=== PATIENT | female | born 1950 | race Two or more races ===

== ENCOUNTER 2017-03-31 12:28 | Inpatient (IN) | payer MEDICARE, OTHER ==
[~2017-03-31] VITALS: Ht 165.1 cm; Wt 52.6 kg
--- NOTE | 2017-03-31 12:28 | NUR ---
ANASTASIYA FROM SNF FOR R FEMORAL NECK FRACTURE S/P GLF WHILE TAKING . AWATING MD ORDER Addendum: 03/31/17 at 1425 by DA LEFT HIP
--- NOTE | 2017-03-31 12:56 | NUR ---
RAC #20 IV ACCESS. BLOOD SAMPLE COLLECTED SENT TO LAB
--- NOTE | 2017-03-31 12:58 | NUR ---
EKG IN PROGRESS
[2017-03-31 13:00] LABS: BASOPHILS # (AUTO) 0.2 /CMM (0.0-0.2); EOSINOPHILS # (AUTO) 0.1 /CMM (0.0-0.7); EOSINOPHILS % (AUTO) 0.7 % (0.0-6.0); HEMATOCRIT 41 % (33-45); HEMOGLOBIN 13.9 g/dL (11.5-14.8); LYMPHOCYTES % (AUTO) 9.9 % (20.0-44.0); MEAN CORPUSCULAR HEMOGLOBIN 30 PG (26.0-33.0); MEAN CORPUSCULAR HGB CONC 34 g/dl (31.0-36.0); MEAN CORPUSCULAR VOLUME 89 fL (82-100); MONOCYTES # (AUTO) 0.8 /CMM (0.1-1.30); MONOCYTES % (AUTO) 7.4 % (2.0-12.0); PLATELET COUNT (AUTO) 182 /CMM (150-450); RDW COEFFICIENT OF VARIATION 12.9 (11.5-15.0); RED BLOOD CELL COUNT(AUTO) 4.67 MIL/uL (4.0-5.2); WHITE BLOOD COUNT (AUTO) 10.1 K/uL (4.3-11.0)
--- NOTE | 2017-03-31 13:05 | NUR ---
COOK [place]AMP AT BEDSIDE
[2017-03-31 13:12] LABS: CALCIUM, SERUM 8.8 mg/dL (8.5-10.1); CARBON DIOXIDE 25 mmol/L (21-32); CHLORIDE 104 mmol/L (98-107); CREATININE 0.8 mg/dL (0.6-1.3); GLUCOSE 106 mg/dL (74-106); POTASSIUM 3.9 mmol/L (3.5-5.1); SODIUM SERUM 138 mmol/L (136-145); UREA NITROGEN, BLOOD 12 mg/dL (7-18)
[2017-03-31 13:14] LABS: INR 1.09 (0.87-1.13); PROTHROMBIN TIME 11.4 SECS (9.5-12.7)
[2017-03-31 13:20] LABS: TROPONIN I < 0.017 ng/mL (0.00-0.056)
--- NOTE | 2017-03-31 13:23 | NUR ---
ORTHO ON-CALL PAGED
--- NOTE | 2017-03-31 13:27 | NUR ---
DR SOLORIO ON THE PHONE WITH FRANCESCO MERRILL TESTER ELECTRONIC SCALE
--- NOTE | 2017-03-31 13:28 | NUR ---
PAGED LEGAL FINANCIAL SPECIALIST PANEL
[2017-03-31] MEDS ORDERED: IV NS 0.9% 1,000 ML BAG IV ONE (13:30)
[2017-03-31] MEDS ORDERED: MORPHINE SULFATE INJ 2 MG/ML DISP.SYRIN IV ONE (13:30)
[2017-03-31] MEDS ORDERED: MORPHINE SULFATE INJ 2 MG/ML DISP.SYRIN ONE (13:33)
--- NOTE | 2017-03-31 13:40 | NUR ---
DR SOLORIO ON THE PHONE WITH DR DALTON REGARDING PATIENT'S ADMISSION.
[2017-03-31] MEDS ORDERED: ASPI81TA2 PO (14:00)
[2017-03-31] MEDS ORDERED: QUET300T2 PO (14:00)
[2017-03-31] MEDS ORDERED: AMLO5TAB2 PO (14:00)
[2017-03-31] MEDS ORDERED: ACET-868 PO (14:00)
[2017-03-31] MEDS ORDERED: MAGN400O6 PO (14:00)
[2017-03-31] MEDS ORDERED: LEVO50TA8 PO (14:00)
[2017-03-31] MEDS ORDERED: QUET50TA PO (14:00)
[2017-03-31] MEDS ORDERED: ATOR80TA PO (14:00)
[2017-03-31] MEDS ORDERED: FAMO20TA8 PO (14:00)
--- NOTE | 2017-03-31 14:19 | NUR ---
GAVE REPORT TO [facility] ROOM 205-[address] DALTON
[2017-03-31 14:40] VITALS: BP 120/72
--- NOTE | 2017-03-31 14:40 | NUR ---
MS RN NOTES ADMITTED FROM ER, [facility]IA [place], DX: L HIP FRACTURE BY DR. DALTON, AAO X 3, ON RA, NOT IN ANY DISTRESS, PAIN TOLERABLE TO LEFT HIP. RT AC G20 V ACCESS, FLUSHES WELL, SITE CLEAR. NO SKIN ISSUES. WAS PLACED ON NPO FROM ER. UNABLE TO AMBULATE. UNIT ORIENTATION DONE AND USE OF CALL LIGHT, BED LOW LOCKED, SR UP X 2, WILL CONTINUE TO MONITOR.
--- NOTE | 2017-03-31 14:51 | NUR ---
MS RN NOTE PLACED A CALL TO DR. DALTON VIA EXCHANGE FOR ADMIT ORDERS.
[2017-03-31] MEDS ORDERED: Z GUARD REMEDY 2 OZ OINT TP PRN (15:00)
[2017-03-31] MEDS ORDERED: HYDROCODONE/APAP 5/325MG 1 EACH TABLET PO PRN (15:00)
[2017-03-31] MEDS ORDERED: ONDANSETRON HCL/PF 4 MG/2 ML VIAL IVP PRN (15:00)
[2017-03-31] MEDS ORDERED: MAGNESIUM HYDROXIDE 30 ML UDC PO PRN (15:00)
[2017-03-31] MEDS ORDERED: ZOLPIDEM TARTRATE 5 MG TABLET PO PRN (15:00)
[2017-03-31] MEDS ORDERED: ACETAMINOPHEN 325 MG TABLET PO PRN (15:00)
--- NOTE | 2017-03-31 15:23 | NUR ---
MS RN NOTES DR. DALTON AT BEDSIDE EARLIER, PLACED ALL ADMIT ORDERS. CARRIED OUT. NAVA DESHPANDE NOTIFIED OF ORTHO CONSULT.
[2017-03-31] MEDS: IV NS 0.9% 1,000 ML IV PRN (15:49)
[2017-03-31 16:00] VITALS: BP 120/72
[2017-03-31] MEDS: ASPIRIN 81 MG TAB.CHEW PO SCH (16:01)
[2017-03-31] MEDS: LEVOTHYROXINE SODIUM 50 MCG TABLET PO SCH (16:01)
[2017-03-31] MEDS: FAMOTIDINE (20 MG) 20 MG TABLET PO SCH (16:01)
[2017-03-31] MEDS: QUETIAPINE FUMARATE 25 MG TABLET PO SCH (16:01)
[2017-03-31] MEDS: AMLODIPINE BESYLATE 5 MG TABLET PO SCH (16:01)
--- NOTE | 2017-03-31 19:40 | NUR ---
MS RN NOTED: PATIENT RESTING IN BED, NO ACUTE DISTRESS NOTED. BREATHING EVEN AND UNLABORED, NO SOB NOTED. IV TO RIGHT HAND IN PLACE, INFUSING NS AT 75ML/HR. MAZARIEGOS CATHETER IN PLACE, DRAINING CLEAR YELLOW URINE. BED LOCKED AND IN LOWEST POSITION, CALL LIGHT IN REACH, WILL CONTINUE TO MONITOR.
[2017-03-31 20:00] VITALS: BP 116/73
[2017-03-31] MEDS: ATORVASTATIN 40 MG TABLET PO SCH (22:05)
[2017-03-31] MEDS: QUETIAPINE FUMARATE 100 MG TABLET PO SCH (22:05)
--- NOTE | 2017-03-31 22:15 | NUR ---
MS RN NOTE: PATIENT COMPLAINS OF PAIN TO LEFT HIP 01/12, NORCO 5/325MG 1 TAB ORAL GIVEN PER MD ORDER. WILL CONTINUE TO MONITOR.
[2017-04-01] MEDS: IV NS 0.9% 1,000 ML IV PRN (05:42)
--- NOTE | 2017-04-01 06:15 | NUR ---
MS RN NOTED: PATIENT RESTING IN BED, NO ACUTE DISTRESS NOTED. BREATHING EVEN AND UNLABORED, NO SOB NOTED. IV TO RIGHT HAND IN PLACE, INFUSING NS AT 75ML/HR. MAZARIEGOS CATHETER IN PLACE. BED LOCKED AND IN LOWEST POSITION, CALL LIGHT IN REACH, WILL ENDORSE TO DAY NURSE TO CONTINUE WITH PLAN OF CARE.
[2017-04-01 06:47] LABS: ALBUMIN 2.6 g/dL (3.4-5.0); BASOPHILS # (AUTO) 0.1 /CMM (0.0-0.2); BASOPHILS % (AUTO) 0.8 % (0.0-2.0); BILIRUBIN,TOTAL 0.5 mg/dL (0.2-1.0); CALCIUM, SERUM 8.1 mg/dL (8.5-10.1); CREATININE 0.8 mg/dL (0.6-1.3); EOSINOPHILS # (AUTO) 0.4 /CMM (0.0-0.7); EOSINOPHILS % (AUTO) 5.2 % (0.0-6.0); HEMATOCRIT 37 % (33-45); HEMOGLOBIN 12.4 g/dL (11.5-14.8); LYMPHOCYTES # (AUTO) 1.4 /CMM (0.8-4.8); LYMPHOCYTES % (AUTO) 19.5 % (20.0-44.0); MAGNESIUM 1.7 mg/dL (1.8-2.4); MEAN CORPUSCULAR HEMOGLOBIN 30 PG (26.0-33.0); MEAN CORPUSCULAR HGB CONC 33 g/dl (31.0-36.0); MEAN CORPUSCULAR VOLUME 89 fL (82-100); MONOCYTES # (AUTO) 0.8 /CMM (0.1-1.30); MONOCYTES % (AUTO) 10.6 % (2.0-12.0); NEUTROPHILS # (AUTO) 4.6 /CMM (1.8-8.9); NEUTROPHILS % (AUTO) 63.9 % (43.0-81.0); PHOSPHORUS 4.3 mg/dL (2.5-4.9); PLATELET COUNT (AUTO) 148 /CMM (150-450); POTASSIUM 4.1 mmol/L (3.5-5.1); RDW COEFFICIENT OF VARIATION 14.2 (11.5-15.0); RED BLOOD CELL COUNT(AUTO) 4.17 MIL/uL (4.0-5.2); TOTAL PROTEIN, SERUM 5.9 g/dL (6.4-8.2); WHITE BLOOD COUNT (AUTO) 7.1 K/uL (4.3-11.0)
--- NOTE | 2017-04-01 07:20 | NUR ---
MS RN OPENING RECEIVED REPORT ON PATIENT. A/OX4 DENIES SOB DIFFICULTY BREATHING AND STATES PAIN IN LEFT LEG BUT IS STATING SHE DOES NOT WANT ANY PAIN MEDICATIONS AT THIS TIME. ALL NEEDS IN REACH, MAZARIEGOS CATH CLEAN AND INTACT PATENT DRAINING. PATIENT UPDATED ON CARE PLAN AND NPO STATUS/LABS ALL QUESTIONS ANSWERED. CALL LIGHT IN REACH, BED LOWERED AND LOCKED, RAILS UPX3 FOR SAFETY WITH BED ALARM ON. PATIENT ASSISTED TO REPOSIT FOR INCREASED COMFORT. WILL ROUND Q2H OR LESS PER NEEDS
[2017-04-01] MEDS: LEVOTHYROXINE SODIUM 50 MCG TABLET PO SCH (07:30)
[2017-04-01] MEDS: FAMOTIDINE (20 MG) 20 MG TABLET PO SCH ×2 (07:30→17:11)
[2017-04-01 08:00] VITALS: BP 119/70
--- NOTE | 2017-04-01 08:29 | NUR ---
ms rn notes patient is forgetful continuing to repeat self. updating patient on care plan
[2017-04-01] MEDS: ASPIRIN 81 MG TAB.CHEW PO SCH (09:00)
[2017-04-01] MEDS: AMLODIPINE BESYLATE 5 MG TABLET PO SCH (10:13)
[2017-04-01] MEDS: QUETIAPINE FUMARATE 25 MG TABLET PO SCH (10:14)
--- NOTE | 2017-04-01 10:15 | NUR ---
MS RN NOTES NAVA DESHPANDE AT BEDSIDE
[2017-04-01] MEDS: Magnesium 1GM/D5W 100ML PREMIX 100 ML IV SCH ×2 (10:21→14:12)
--- NOTE | 2017-04-01 10:52 | NUR ---
MS RN NOTES PATIENT STATING PAIN 10/13 BUT CONTINUES TO REFUSE PAIN MEDICATIONS; PATIENT STATES AT THIS TIME PAIN IS MANAGEABLE
--- NOTE | 2017-04-01 11:15 | NUR ---
MS RN NOTES PATIENT TAKEN TO SURGICAL UNIT IN STABLE CONDITION
[2017-04-01] MEDS ORDERED: LIDOCAINE 1% INJ 50 ML MDV IJ ONE (11:46)
[2017-04-01] MEDS ORDERED: BACITRACIN 50000 UNITS/VIAL ONE (11:46)
[2017-04-01] MEDS ORDERED: BUPIVACAINE MPF W/EPI 0.25% 30 ML VIAL ONE (11:48)
[2017-04-01] MEDS ORDERED: ROCURONIUM BROMIDE 50 MG/5 ML ONE (11:52)
[2017-04-01] MEDS ORDERED: FENTANYL PF 100MCG/2ML AMPUL ONE ×2 (11:52→12:52)
[2017-04-01] MEDS ORDERED: MIDAZOLAM HCL 2 MG/2ML VIAL ONE (11:52)
--- NOTE | 2017-04-01 12:05 | NUR ---
MS CARTER NOTES PATIENT GONE AT SURGERY Addendum: 04/01/17 at 1207 by WILDER MALDONADO RN Amended: Links added.
[2017-04-01] MEDS ORDERED: TRANEXAMIC ACID 3,000 MG in SODIUM CHLORIDE IRRIG SOLUTION 70 ML IR ONE (13:00)
[2017-04-01 14:00] VITALS: BP 137/65
[2017-04-01] MEDS ORDERED: SENOKOT 8.6 MG TABLET PO PRN (14:00)
[2017-04-01] MEDS ORDERED: HYDROCODONE/APAP 5/325MG 1 EACH TABLET PO PRN (14:00)
[2017-04-01] MEDS ORDERED: ZOFRAN 4mg/2ML IV PRN (14:00)
[2017-04-01] MEDS ORDERED: AMBIEN 5 MG TABLET PO PRN (14:00)
[2017-04-01] MEDS ORDERED: HYDROMORPHONE 1 MG/1 ML DISP.SYRIN IV PRN (14:00)
[2017-04-01] MEDS ORDERED: DULCOLAX 10 MG/SUPP.RECT RC PRN (14:00)
--- NOTE | 2017-04-01 14:01 | NUR ---
MS RN NOTES PATIENT RETURNED FROM SURGERY STABLE DENIES PAIN, SOB DIFFICULTY BREATHING AT THIS TIME. IN POSITION OF COMFORT. DRESSING TO LEFT HIP INTACT. BED LOWERED AND LOCKED, RAILS UPX3 FOR SAFETY AND WILL ROUND NEEDED
[2017-04-01 14:20] VITALS: BP 128/62
[2017-04-01] MEDS: IV LR 1000 ML 1,000 ML IV PRN (14:32)
[2017-04-01] MEDS ORDERED: ANESTHESIA TRAY IN PYXIS 1 EA TRAY MC ONE (14:34)
[2017-04-01 15:20] VITALS: BP 133/68
[2017-04-01] MEDS ORDERED: RIVAROXABAN 10 MG TABLET PO SCH (17:00)
--- NOTE | 2017-04-01 19:00 | NUR ---
MS RN NOTES PATIENT STATES NO FLATUS
--- NOTE | 2017-04-01 19:20 | NUR ---
MS/RN OPENING NOTES PT RECEIVED RESTING COMFORTABLY IN BED. HOB ELEVATED. A/OX3, ON RA. BREATHING EVEN AND UNLABORED. DENIES SOB OR PAIN AT THIS TIME. MAZARIEGOS IN PLACE AND DRAINING WELL. IV TO RIGHT HAND RUNNING IVF ORDERED. NO S/S OF INFILTRATION NOTED. S/P LEFT HIP ARTHROPLASTY WITH DR. LANGSTON. ABDUCTOR PILLOW IN PLACE. ORDERS TO REMOVE MAZARIEGOS AND RN TO CHANGE DRESSING POST OP DAY #2 (TUESDAY 04/03). BED IN LOW/LOCKED POSITION, CALL LIGHT IN REACH. SIDE RAILS UP X2. WILL CONTINUE TO MONITOR
--- NOTE | 2017-04-01 19:36 | NUR ---
MS RN CLOSING PATIENT STABLE NO COMPLICATIONS. PATIENT STABLE AND STATES NO NEEDS AT THIS TIME. ALL DUE MEDS GIVEN AND ALL NEEDS MET. CARE ENDORSED TO LITZY CARTER FOR DAVID. ABDUCTOR PILLOW IN PLACE AND PATIENT ASSISTED TO TURN Q2H
[2017-04-01 20:00] VITALS: BP 126/77
[2017-04-01] MEDS: ANCEF 1 G in IV D5W 50 ML IV SCH (20:40)
[2017-04-01] MEDS: ATORVASTATIN 40 MG TABLET PO SCH (22:10)
[2017-04-01] MEDS: QUETIAPINE FUMARATE 100 MG TABLET PO SCH (22:10)
[2017-04-01] MEDS: TYLENOL 650 MG TABLET PO PRN (22:14)
--- NOTE | 2017-04-01 22:15 | NUR ---
MS/RN NOTES PT NOTES DISCOMFORT TO LEFT LEG BUT REFUSING NARCOTIC MEDICATION. OFFERED TYLENOL ALTERNATIVE AND PT WILLING TO TAKE. ADMINISTERED ORDERED.
[2017-04-02] MEDS: IV LR 1000 ML 1,000 ML IV PRN (04:02)
[2017-04-02] MEDS: ANCEF 1 G in IV D5W 50 ML IV SCH (04:02)
[2017-04-02] MEDS: TYLENOL 650 MG TABLET PO PRN ×3 (05:14→21:51)
[2017-04-02 06:31] LABS: BASOPHILS % (AUTO) 0.3 % (0.0-2.0); EOSINOPHILS # (AUTO) 0.2 /CMM (0.0-0.7); EOSINOPHILS % (AUTO) 2.6 % (0.0-6.0); HEMATOCRIT 34 % (33-45); HEMOGLOBIN 11.3 g/dL (11.5-14.8); LYMPHOCYTES # (AUTO) 1.2 /CMM (0.8-4.8); LYMPHOCYTES % (AUTO) 12.9 % (20.0-44.0); MEAN CORPUSCULAR HEMOGLOBIN 30 PG (26.0-33.0); MEAN CORPUSCULAR HGB CONC 33 g/dl (31.0-36.0); MEAN CORPUSCULAR VOLUME 90 fL (82-100); MONOCYTES % (AUTO) 10.3 % (2.0-12.0); NEUTROPHILS % (AUTO) 73.9 % (43.0-81.0); PLATELET COUNT (AUTO) 139 /CMM (150-450); RDW COEFFICIENT OF VARIATION 14.3 (11.5-15.0); RED BLOOD CELL COUNT(AUTO) 3.79 MIL/uL (4.0-5.2); WHITE BLOOD COUNT (AUTO) 9.5 K/uL (4.3-11.0)
[2017-04-02 06:57] LABS: CALCIUM, SERUM 8.3 mg/dL (8.5-10.1); CREATININE 0.9 mg/dL (0.6-1.3); MAGNESIUM 1.8 mg/dL (1.8-2.4); POTASSIUM 4.1 mmol/L (3.5-5.1)
--- NOTE | 2017-04-02 07:15 | NUR ---
MS/RN CLOSING NOTES PT ASLEEP, EASILY AWAKENED TO NEARBY NOISE. ON ROOM AIR, BREATHING EVEN AND UNLABORED. DENIES SOB, PAIN AT THIS TIME. ONLY REQUESTING TYLENOL FOR DISCOMFORT. PT PASSING GAS. MAZARIEGOS IN PLACE AND DRAINING WELL. ABDUCTOR PILLOW IN PLACE. IV TO RIGHT HAND RUNNING IVF ORDERED. MADE PT COMFORTABLE DURING SHIFT. ALL NEEDS MET AND ATTENDED. ASSISTED WITH TURNING AND REPOSITIONING Q2H. HEELS OFFLOADED. BED IN LOW/LOCKED POSITION, CALL LIGHT IN REACH AND SIDE RAILS UPX2. ENDORSED TO AM SHIFT DAVID.
--- NOTE | 2017-04-02 07:30 | NUR ---
MS/RN Patient received Patient received from energy analyst. Surgical incision remains clean and dry, pain well controlled with tylenol at this time. Call light within reach, will continue to monitor to ensure safety.
[2017-04-02 08:00] VITALS: BP 111/68
[2017-04-02] MEDS: ASPIRIN 81 MG TAB.CHEW PO SCH (08:38)
[2017-04-02] MEDS: QUETIAPINE FUMARATE 25 MG TABLET PO SCH (08:39)
[2017-04-02] MEDS: RIVAROXABAN 10 MG TABLET PO SCH (08:39)
[2017-04-02] MEDS: AMLODIPINE BESYLATE 5 MG TABLET PO SCH (08:39)
[2017-04-02] MEDS: LEVOTHYROXINE SODIUM 50 MCG TABLET PO SCH (08:41)
[2017-04-02] MEDS: FAMOTIDINE (20 MG) 20 MG TABLET PO SCH ×2 (08:41→16:36)
--- NOTE | 2017-04-02 09:15 | NUR ---
MS/RN Medications Morning medications administered as ordered, no problems swallowing.
--- NOTE | 2017-04-02 10:30 | NUR ---
MS/RN PT Seen by PT - able to get out of bed with maximum assist, requires standby assist when ambulating with FWW (10 feet)
--- NOTE | 2017-04-02 11:00 | NUR ---
MS/RN Labs Morning labs reviewed: -H&H -PT 11.4 -INR 1.09
[2017-04-02 16:00] VITALS: BP 129/68
--- NOTE | 2017-04-02 16:45 | NUR ---
MS/RN Pain medication Tylenol 650mg given for pain to left hip, patient refusing to take any type of narcotic.
--- NOTE | 2017-04-02 18:00 | NUR ---
MS/RN Turning schedule Patient has been turned and repositioned every 2-3 hours throughout the shift. Please see IMPACT HAMMER OPERATOR flowsheet for turning schedule.
--- NOTE | 2017-04-02 18:17 | NUR ---
MS/RN End note No changes at this time in plan of care. No complaints of pain, tolerating liquids and diet. Will endorse to filling layer up.
--- NOTE | 2017-04-02 19:25 | NUR ---
MS/RN OPENING NOTES PT RECEIVED AWAKE, HOB ELEVATED. RESTING COMFORTABLY IN BED. ON ROOM AIR, BREATHING EVEN AND UNLABORED. DENIES SOB OR PAIN AT THIS TIME. SAYS SHE IS DOING WELL WITH TYLENOL. SURGICAL DRESSING C/D/I. DRESSING CHANGE TO BE DONE TOMORROW. IV TO RIGHT HAND PATENT AND INTACT. PT AMBULATED WITH PHYSICAL THERAPY TODAY. MAZARIEGOS TO BE REMOVED TOMORROW. PT REQUIRES PNA VACCINE UPON DISCHARGE PER PT'S SNF RECORDS. BED IN LOW/LOCKED POSITION. CALL LIGHT WITHIN REACH. SIDE RAILS UPX2. WILL CONTINUE TO MONITOR
[2017-04-02 20:00] VITALS: BP 109/66
[2017-04-02] MEDS: QUETIAPINE FUMARATE 100 MG TABLET PO SCH (21:51)
[2017-04-02] MEDS: ATORVASTATIN 40 MG TABLET PO SCH (21:51)
--- NOTE | 2017-04-02 23:20 | NUR ---
MS/RN NOTES PT REQUESTING SLEEPING AID. ADMINISTERED PRN AMBIEN 5MG ORDERED. WILL MONITOR FOR EFFECTIVENESS
--- NOTE | 2017-04-03 07:19 | NUR ---
MS/RN CLOSING NOTES PT AWAKE, HOB ELEVATED. ON RA, BREATHING EVEN AND UNLABORED. DENIES SOB OR PAIN AT THIS TIME. MANAGED WELL WITH TYLENOL. IV TO RIGHT HAND PATENT AND INTACT. MADE PT COMFORTABLE DURING SHIFT. ASSISTED WITH TURNING/REPOSITIONING Q2H, ABDUCTOR PILLOW IN PLACE. HEELS OFFLOADED. ORDERS TO REMOVE MAZARIEGOS AND CHANGE DRESSING TODAY. BED IN LOW/LOCKED POSITION, CALL LIGHT IN REACH. SIDE RAILS UP X2. ENDORSED TO AM SHIFT DAVID.
--- NOTE | 2017-04-03 07:30 | NUR ---
MS/RN Patient received Patient received from awake overnight monitor. No needs at this time, denies pain, updated as to plan of care. Call light within reach, will continue to monitor and ensure safety.
[2017-04-03 08:00] VITALS: BP 103/64
[2017-04-03] MEDS: RIVAROXABAN 10 MG TABLET PO SCH (08:02)
[2017-04-03] MEDS: AMLODIPINE BESYLATE 5 MG TABLET PO SCH (08:03)
[2017-04-03] MEDS: COLACE 250 MG CAPSULE PO PRN ×2 (08:04→20:59)
[2017-04-03] MEDS: FAMOTIDINE (20 MG) 20 MG TABLET PO SCH ×2 (08:04→16:09)
[2017-04-03] MEDS: LEVOTHYROXINE SODIUM 50 MCG TABLET PO SCH (08:04)
[2017-04-03] MEDS: ASPIRIN 81 MG TAB.CHEW PO SCH (08:04)
[2017-04-03] MEDS: QUETIAPINE FUMARATE 25 MG TABLET PO SCH (08:04)
--- NOTE | 2017-04-03 09:00 | NUR ---
MS/RN Medications Morning medications administered as ordered, no problems swallowing.
--- NOTE | 2017-04-03 09:45 | NUR ---
MS/RN S/B PT Patient currently being seen by PT - out of bed to chair, walking short distance.
--- NOTE | 2017-04-03 13:50 | NUR ---
MS/RN S/B Dr Begum Seen by Dr Begum - for possible discharge to SNF later today if cleared by ortho.
[2017-04-03 16:00] VITALS: BP 126/70
--- NOTE | 2017-04-03 18:25 | NUR ---
MS/RN End note No changes in plan of care. Seen by ortho - dressing changed, wound appears without any signs of infection, no fevers. For discharge tomorrow to SNF. Will endorse to restaurant shift supervisor.
--- NOTE | 2017-04-03 19:30 | NUR ---
MSRN FULLY AWAKE, RESTING QUIETLY. POST OP PAIN TOLERABLE OF THIS TIME. STATED WILL CALL IS PAIN PERSISTS.
[2017-04-03 20:00] VITALS: BP 119/65
--- NOTE | 2017-04-03 20:00 | NUR ---
MSNR FEBRILE, 101.2. PLACED CALL TO DR. Joselin REBOLLAR, ORDERS RECEIVED.
--- NOTE | 2017-04-03 20:15 | NUR ---
MSRN REFUSED BLOOD WORK OF THIS TIME, STATED WANTED TO EAT SANDWICH FIRST. LAB NOTIFIED. WILL CALL LAB ONCE PATIENT READY. EXPLAINED NEED TO HAVE LABS DONE, STILL INSISTED TO DEFER FOR NOW.
--- NOTE | 2017-04-03 20:40 | NUR ---
MSRN STILL REFUSED BLOOD WORK. RECHECKED TEMP WAS 100.6 F OF THIS TIME. ENCOURAGED TO INCREASE FLUID INTAKE.
[2017-04-03] MEDS: ATORVASTATIN 40 MG TABLET PO SCH (20:54)
[2017-04-03] MEDS: TYLENOL 650 MG TABLET PO PRN (20:55)
--- NOTE | 2017-04-03 22:00 | NUR ---
MSRN CHECKED TEMP WAS 982 AT THIS TIME. STILL REFUSED BLOOD DRAW
[2017-04-03] MEDS: QUETIAPINE FUMARATE 100 MG TABLET PO SCH (22:30)
--- NOTE | 2017-04-04 00:38 | NUR ---
MSRN PARTIALLY BATHED, LARGE URINE OUTPUT. KEPT DRY, CLEAN AND COMFORTABLE. REPOSITIONED.
--- NOTE | 2017-04-04 05:35 | NUR ---
MSRN AGREED THIS TIME TO HAVE BLOOD DRAW.
[2017-04-04 06:20] LABS: BASOPHILS % (AUTO) 0.2 % (0.0-2.0); EOSINOPHILS # (AUTO) 0.2 /CMM (0.0-0.7); EOSINOPHILS % (AUTO) 2.5 % (0.0-6.0); HEMATOCRIT 32 % (33-45); HEMOGLOBIN 10.9 g/dL (11.5-14.8); LYMPHOCYTES # (AUTO) 1.5 /CMM (0.8-4.8); LYMPHOCYTES % (AUTO) 17.1 % (20.0-44.0); MEAN CORPUSCULAR HEMOGLOBIN 30 PG (26.0-33.0); MEAN CORPUSCULAR HGB CONC 34 g/dl (31.0-36.0); MEAN CORPUSCULAR VOLUME 89 fL (82-100); MONOCYTES % (AUTO) 11.5 % (2.0-12.0); NEUTROPHILS # (AUTO) 5.9 /CMM (1.8-8.9); NEUTROPHILS % (AUTO) 68.7 % (43.0-81.0); PLATELET COUNT (AUTO) 194 /CMM (150-450); RDW COEFFICIENT OF VARIATION 13.6 (11.5-15.0); RED BLOOD CELL COUNT(AUTO) 3.63 MIL/uL (4.0-5.2); WHITE BLOOD COUNT (AUTO) 8.5 K/uL (4.3-11.0)
[2017-04-04 06:34] LABS: CALCIUM, SERUM 8.5 mg/dL (8.5-10.1); CREATININE 0.8 mg/dL (0.6-1.3); POTASSIUM 3.8 mmol/L (3.5-5.1)
--- NOTE | 2017-04-04 06:44 | NUR ---
MSRN LARGE OUTPUT, CHANGED DIAPER 3 TIMES. USED BEDPAN TWICE. REMAINS AFEBRILE 98.6 AT THIS TIME.
--- NOTE | 2017-04-04 07:30 | NUR ---
RN MS NOTES PT IN BED, AWAKE, ALERT AND ORIENTED, NOT IN DISTRESS, WITH COMPLAINT OF PAIN AT LEFT HIP, REFUSES ANY PAIN MEDICATION AT THIS TIME, ABDUCTION PILLOW ON, CALL LIGHT WITHIN REACH, NEEDS ATTENDED.
[2017-04-04 08:00] VITALS: BP 120/77
[2017-04-04] MEDS: LEVOTHYROXINE SODIUM 50 MCG TABLET PO SCH (08:22)
[2017-04-04] MEDS: RIVAROXABAN 10 MG TABLET PO SCH (08:23)
[2017-04-04] MEDS: QUETIAPINE FUMARATE 25 MG TABLET PO SCH (08:23)
[2017-04-04] MEDS: ASPIRIN 81 MG TAB.CHEW PO SCH (08:23)
[2017-04-04 08:24] VITALS: BP 120/77
[2017-04-04] MEDS: AMLODIPINE BESYLATE 5 MG TABLET PO SCH (08:24)
[2017-04-04] MEDS: TYLENOL 650 MG TABLET PO PRN (08:24)
[2017-04-04] MEDS: FAMOTIDINE (20 MG) 20 MG TABLET PO SCH (08:24)
--- NOTE | 2017-04-04 11:29 | NUR ---
RN MS NOTES PT IN BED, AWAKE, NO COMPLAINT OF PAIN, BREATHING PATTERN NORMAL, DISCHARGE ORDER RECEIVED FROM MD, PT INFORMED, DISCHARGE AND MEDICATION INSTRUCTIONS PROVIDED TO PT, VERBALIZED UNDERSTANDING, CALL LIGHT WITHIN REACH, NEEDS ATTENDED.
--- NOTE | 2017-04-04 14:50 | NUR ---
RN MS NOTES PT IN BED, AWAKE, DENIES PAIN, NOT IN DISTRESS, REPORT GIVEN TO MIRYAM OF [facility], DISCHARGE INSTRUCTIONS GIVEN, PT BELONGINGS ACCOUNTED FOR, PER PT, SHE WILL CALL HER SON MATILDE WHEN SHE GETS TO THE NURSING FACILITY, PICKED UP BY 2 AMBULANCE PERSONNEL, LEFT VIA GUERNEY IN STABLE CONDITION.
== END 2017-04-04 14:45 | DRG 470 ==
LOC: ER 12:30 → MEDSG2 14:06
PROVIDERS: ADMIT Internal Medicine; ATTEND Internal Medicine
PROC: 0SRS0J9 Replacement of Left Hip Joint, Femoral Surface with Synthetic Substitute, Cemented, Open Approach (ICD-10-PCS; principal; 2017-04-01 12:38)
DX: M80.052A Age-related osteoporosis with current pathological fracture, left femur, initial encounter for fracture (principal); D69.6 Thrombocytopenia, unspecified; F41.9 Anxiety disorder, unspecified; W19.XXXA Unspecified fall, initial encounter; E03.9 Hypothyroidism, unspecified; K21.9 Gastro-esophageal reflux disease without esophagitis; F20.9 Schizophrenia, unspecified; F31.9 Bipolar disorder, unspecified
CPT/HCPCS: 36415; 71010-TC; 73130-TC; 73502; 80048-TC; 80053-TC; 80061-TC; 83735-TC; 84100-TC; 84484-TC; 85025-TC; 85730-TC; 86850-TC; 87040-TC; 87081-TC; 97116-TC; 97530-TC; A4217; A4606; A6209; A6402; C1713; J0690; J1885; J2250; J2270; J2405; J2704; J3010; J3475; J3490; J7030; J7060; J7120; Z7610

== ENCOUNTER 2017-06-28 06:52 | Inpatient (IN) | payer MEDICARE, OTHER ==
[~2017-06-28] VITALS: Ht 172.7 cm; Wt 72.6 kg
[~2017-06-28 06:52] MED LIST: ACET-868 PO; AMLO5TAB2 PO; ASPI-1169 PO; ATOR80TA PO; FAMO20TA8 PO; LEVO50TA8 PO; MAGN400O6 PO; QUET300T2 PO; QUET50TA PO
--- NOTE | 2017-06-28 07:00 | NUR ---
[id number]: PT IS 67 YEARS OLD FEMALE ADMITTED ON 5150 FOR GD. PT WAS FOUND SITTING ON A BUS STOP BENCH. PT IS INCOHERENT AND UNABLE TO ANSWER SIMPLE QUESTIONS. SHE STATED SHE DIDN'T KNOW WHERE SHE LIVED, WHAT DAY OF THE WEEK WAS AND DIDN'T KNOW WHEN THE LAST TIME SHE ATE. PT IS UNABLE TO PROVIDE WITH ANY INFORMATION FROM FAMILY MEMBERS. PT HAS HTN, HYPOTHYROIDISM, GERD, PSYCHOSIS. PT IS AMBULATORY WITH UNSTEADY GAIT, NEEDS ASSISTANCE WITH ADLS, CONTINENT. PT IS OBSERVED TO BE ANXIOUS, RESTLESS, EASILY IRRITABLE, NONCOMPLIANT, UNABLE TO FORMULATE SELF CARE PLAN. PROVIDE WITH PT'S RIGHT BOOKLET, DISCUSS MEAL TIMES, AIR-FRESH BREAKS. ESCORTED PT AROUND THE UNIT TO GET FAMILIARIZED WITH THE NEW ENVIRONMENT. BELONGINGS STORED AND DOCUMENTED. WAS ABLE TO TAKE PICTURES OF RIGHT HAND AND LEFT ARM AND PT THEN REFUSED TO COOPERATE WITH STAFF AND REFUSED TO COMPLETE SKIN ASSESSMENT. NOTIFIED DR. DOLAN AND DR. DALTON. NOTIFIED FAMILY. ALL ADMISSION PAPERWORK AND COMPUTER DOCUMENTATION COMPLETED AND WILL ENDORSE TO INCOMING NURSE TO DOUBLE CHECK ALL PAPERWORK AND COMPUTER DOCUMENTATION.
[2017-06-28 08:00] VITALS: BP 156/63
[2017-06-28] MEDS ORDERED: ACETAMINOPHEN 325 MG TABLET PO PRN (08:00)
[2017-06-28] MEDS ORDERED: MAGNESIUM HYDROXIDE 30 ML UDC PO PRN (08:00)
[2017-06-28] MEDS ORDERED: MAG HYDROX/AL HYDROX/SIMETH 30 ML UDC PO PRN (08:00)
[2017-06-28] MEDS: LORAZEPAM 0.5 MG TABLET PO PRN (09:19)
--- NOTE | 2017-06-28 09:19 | NUR ---
[id number]: GAVE ATIVAN 1 MG PO DUE TO SEVERE ANXIETY UPON PT REQUEST AND WILL CONTINUE TO MONITOR FOR EFFECTIVENESS OF MEDICATION
[2017-06-28] MEDS: LEVOTHYROXINE SODIUM 50 MCG TABLET PO SCH (10:00)
[2017-06-28] MEDS: AMLODIPINE BESYLATE 5 MG TABLET PO SCH (10:00)
[2017-06-28] MEDS: FAMOTIDINE (20 MG) 20 MG TABLET PO SCH ×2 (10:00→16:19)
[2017-06-28] MEDS: ASPIRIN 81 MG TAB.CHEW PO SCH (10:00)
[2017-06-28] MEDS: QUETIAPINE FUMARATE 100 MG TABLET PO SCH ×2 (11:58→16:19)
[2017-06-28 16:12] VITALS: BP 148/68
[2017-06-28 20:04] VITALS: BP 161/76
[2017-06-28] MEDS ORDERED: QUETIAPINE FUMARATE 100 MG TABLET PO SCH (22:00)
--- NOTE | 2017-06-28 22:22 | NUR ---
GPS RN NOTES: PATIENT REFUSED SCHEDULED MED ON 2200, OFFERED 3X, DESPITE EXPLANATION THE RISKS AND BENEFITS BUT PATIENT STATED I WANNA SLEEP. WILL CONTINUE TO MONITOR.
[2017-06-29] MEDS: TEMAZEPAM 7.5 MG CAPSULE PO PRN ×2 (01:15→23:09)
[2017-06-29] MEDS: LORAZEPAM 0.5 MG TABLET PO PRN (03:08)
--- NOTE | 2017-06-29 03:08 | NUR ---
GPS RN NOTES: PATIENT IS ANXIOUS, VITAL SIGNS ARE STABLE. ADMINISTERED ATIVAN 1MG PO PRN ORDER. WILL CONTINUE TO MONITOR.
[2017-06-29] MEDS: FAMOTIDINE (20 MG) 20 MG TABLET PO SCH ×2 (07:30→16:30)
[2017-06-29] MEDS: LEVOTHYROXINE SODIUM 50 MCG TABLET PO SCH (07:30)
[2017-06-29 07:32] LABS: ALBUMIN 3.4 g/dL (3.4-5.0); BILIRUBIN,TOTAL 0.7 mg/dL (0.2-1.0); CALCIUM, SERUM 9.1 mg/dL (8.5-10.1); CREATININE 0.9 mg/dL (0.6-1.3); POTASSIUM 3.5 mmol/L (3.5-5.1); TOTAL PROTEIN, SERUM 7.1 g/dL (6.4-8.2)
[2017-06-29 07:33] LABS: CHOLESTEROL 197 mg/dL (<200); HDL CHOLESTEROL 84 mg/dL (40-60); LDL 97 mg/dL (0-99); TRIGLYCERIDES 50 mg/dL (30-150)
[2017-06-29 08:00] VITALS: BP 144/61
[2017-06-29] MEDS: AMLODIPINE BESYLATE 5 MG TABLET PO SCH (09:10)
[2017-06-29] MEDS: ASPIRIN 81 MG TAB.CHEW PO SCH (09:10)
[2017-06-29] MEDS: QUETIAPINE FUMARATE 100 MG TABLET PO SCH ×2 (09:10→17:00)
[2017-06-29 16:00] VITALS: BP 111/58
[2017-06-29] MEDS: ATORVASTATIN 40 MG TABLET PO SCH (21:35)
[2017-06-29 21:52] VITALS: BP 99/70
[2017-06-29] MEDS ORDERED: QUETIAPINE FUMARATE 100 MG TABLET PO SCH (22:00)
[2017-06-30] MEDS: LEVOTHYROXINE SODIUM 50 MCG TABLET PO SCH (07:30)
[2017-06-30] MEDS: FAMOTIDINE (20 MG) 20 MG TABLET PO SCH ×2 (07:30→16:30)
[2017-06-30 08:00] VITALS: BP 100/75
[2017-06-30] MEDS: AMLODIPINE BESYLATE 5 MG TABLET PO SCH (09:00)
[2017-06-30] MEDS: QUETIAPINE FUMARATE 100 MG TABLET PO SCH ×3 (09:32→18:11)
[2017-06-30] MEDS: ASPIRIN 81 MG TAB.CHEW PO SCH (09:32)
[2017-06-30 16:16] VITALS: BP 117/67
[2017-06-30 19:58] VITALS: BP 123/83
[2017-06-30] MEDS ORDERED: QUETIAPINE FUMARATE 100 MG TABLET PO SCH (22:00)
[2017-06-30] MEDS: ATORVASTATIN 40 MG TABLET PO SCH (22:09)
[2017-07-01] MEDS: FAMOTIDINE (20 MG) 20 MG TABLET PO SCH ×2 (07:30→17:28)
[2017-07-01] MEDS: LEVOTHYROXINE SODIUM 50 MCG TABLET PO SCH (07:30)
[2017-07-01 08:00] VITALS: BP 135/64
[2017-07-01] MEDS: QUETIAPINE FUMARATE 100 MG TABLET PO SCH ×4 (09:25→21:32)
[2017-07-01] MEDS: ASPIRIN 81 MG TAB.CHEW PO SCH (09:25)
[2017-07-01] MEDS: AMLODIPINE BESYLATE 5 MG TABLET PO SCH (09:26)
[2017-07-01 15:58] VITALS: BP 125/63
--- NOTE | 2017-07-01 16:16 | NUR ---
Initial Discharge Plan: Pt resides at [address] [place] [address] and wants to return home upon discharge. SW called pts son , Aleks Kumari for collateral information. Aleks is pts DPOA. Per pts son, pt was discharged from [facility] about 1 month ago. Aleks [facility] SW will follow up. SW will ensure pt is properly and safely discharged
[2017-07-01 20:50] VITALS: BP 141/82
[2017-07-01] MEDS: ATORVASTATIN 40 MG TABLET PO SCH (21:31)
[2017-07-02 08:00] VITALS: BP 132/78
[2017-07-02] MEDS: LEVOTHYROXINE SODIUM 50 MCG TABLET PO SCH (08:42)
[2017-07-02] MEDS: AMLODIPINE BESYLATE 5 MG TABLET PO SCH (08:42)
[2017-07-02] MEDS: FAMOTIDINE (20 MG) 20 MG TABLET PO SCH ×2 (08:42→16:12)
[2017-07-02] MEDS: ASPIRIN 81 MG TAB.CHEW PO SCH (08:42)
[2017-07-02] MEDS: QUETIAPINE FUMARATE 100 MG TABLET PO SCH ×5 (08:42→22:52)
--- NOTE | 2017-07-02 11:51 | NUR ---
Discharge Planning: RONI spoke to pts son, Ken Dowling for discharge planning purposes. Per conversation with son, he is unable to care for his mother at his home, "because my and I work and she needs someone to be with her." Pts son reported that she can return home to live with her sisters (Tiesha and Meghann) once she is more stable. Pt and son agreed to look for alternative care (i.e. SNF or Assisted living). SW will follow up and ensure pt is properly and safely discharged. Addendum: 07/02/17 at 1209 by CIRA TAMAYO Void Note. Note pertains to patient Maranda Dowling.
--- NOTE | 2017-07-02 12:09 | NUR ---
Discharge Planning: SW spoke to pts son Aleks Kumari and confirmed DPOA paperwork had been received via email. Per pts son he would like for his mother to be placed at a half-way facility. Pts son, however would prefer if his mother did not return to [facility] facility. SW will follow up to ensure pt is properly and safely discharged.
[2017-07-02 16:00] VITALS: BP 102/61
[2017-07-02 20:00] VITALS: BP 114/63
[2017-07-02] MEDS: ATORVASTATIN 40 MG TABLET PO SCH ×2 (22:00→22:52)
--- NOTE | 2017-07-02 23:36 | NUR ---
Patient refused her Lipitor 80 mg and Seroquel 250 mg tonguy, Charge Nurse Karla made aware. medications were offered 2x, still refused.
[2017-07-03 08:00] VITALS: BP 129/75
[2017-07-03] MEDS: LEVOTHYROXINE SODIUM 50 MCG TABLET PO SCH (08:30)
[2017-07-03] MEDS: FAMOTIDINE (20 MG) 20 MG TABLET PO SCH ×2 (08:31→16:30)
[2017-07-03] MEDS: AMLODIPINE BESYLATE 5 MG TABLET PO SCH (08:31)
[2017-07-03] MEDS: ASPIRIN 81 MG TAB.CHEW PO SCH (08:31)
[2017-07-03] MEDS: QUETIAPINE FUMARATE 100 MG TABLET PO SCH ×3 (08:52→16:51)
--- NOTE | 2017-07-03 09:24 | NUR ---
Discharge Planning: RONI contacted Don from [facility] for discharge planning purposes. RONI inquired if facility would be wiiling to accept pt. RONI faxed inquiry. RONI will follow up.
--- NOTE | 2017-07-03 09:26 | NUR ---
Discharge Planning; RONI contacted pts son Aleks Kumari, [facility] for discharge planning purposes, however was unable to speak to him. SW left a detailed message informing son that pts placement options were limited. RONI asked for a call back. RONI will follow up.
--- NOTE | 2017-07-03 09:59 | NUR ---
Discharge Planning: RONI spoke to pts son, Aleks Kumari, DPOA and discussed discharge plan. RONI informed pts son regarding placement options for pt based on number of SNIF days. RONI informed pts son that attempts to have pt discharged to a SNF were being made, which he was in agreement. Pts son also inquired about [facility] asking if the facility could accept pt. Pts son understood pt would be discharging soon. He agreed to to explore placement options (i.e. home care) for his mother. He agreed to call RONI back on this date with an update. RONI will follow up.
--- NOTE | 2017-07-03 12:58 | NUR ---
Discharge Planning: RONI spoke to Reva from [facility] [place] who stated that the facility had accepted pt. RONI spoke to pts son, Aleks BARTH to inform him of pts discharge to [facility] on this date. Pts son is in agreement. RONI also informed pt of discharge plans, which she agreed. RONI will follow up to ensure pt is properly and safely discharged.
--- NOTE | 2017-07-03 13:25 | NUR ---
RN-CO: DR DOLAN GAVE AN ORDER TO DISCHARGE PATIENT AND DISCONTINUE HOLD, NOTED. PATIENT IS CALM AND COOPERATIVE TO CARE. DENIED SI/HI AND DENIED AH/VH.
--- NOTE | 2017-07-03 13:56 | NUR ---
Discharge Note: Patient will be discharged to [facility], [address], [place] [address] at 3:00pm via ambulance transportation arranged by social services counselor through [employer], trip #[id number]. Patients son / DPOA JOE Golden is aware of and approves the discharge plan. Upon discharge, patient appeared to be cooperative and denied suicidal / homicidal ideation. At the facility, patient will be under the care of pediatric clinical dietician, Dr. Hall [address] [place] [address], . Patient will also be followed by psychiatrist, Dr. Correa [address], [place], [place] [id number] [phone]
--- NOTE | 2017-07-03 14:27 | NUR ---
DR. DOLAN GAVE AN ORDER TO D/C HOLD AND D/C TO [facility] AND TO FOLLOW UP WITH PSYCH AND MEDICAL DOCTORS. PT. WITHOUT DISTRESS, DENIES SUICIDAL AND HOMICIDAL. MEREDITH JUAREZ MADE AWARE OF THE DISCHARGE AND SAID OK FOR DISCHARGE AND TO CONTINUE SAME INCLUDING PRN. PT. SIGNED THE DISCHARGE PAPERS, BELONGINGS READY AND PICTURES TAKEN FOR SKIN ISSUES. REPORT GIVEN TO JAIME OVER THE FACILITY.
--- NOTE | 2017-07-03 15:30 | NUR ---
RN-CO: MEREDITH JUAREZ MEDICALLY CLEARED PATIENT FOR DISCHARGE.
[2017-07-03 16:00] VITALS: BP 127/66
--- NOTE | 2017-07-03 16:45 | NUR ---
RN-CO: PATIENT WAS PICKED UP BY AMBULANCE. ALL BELONGINGS WERE GIVEN BACK TO THE PATIENT INCLUDING HER CELL PHONE.
== END 2017-07-03 16:57 | DRG 885 ==
LOC: GPS 06:52
PROVIDERS: ADMIT Psychiatry & Neurology Psychosomatic Medicine; ATTEND Internal Medicine
DX: F20.9 Schizophrenia, unspecified (principal); D69.6 Thrombocytopenia, unspecified; F03.90 Unspecified dementia, unspecified severity, without behavioral disturbance, psychotic disturbance, mood disturbance, and anxiety; E03.9 Hypothyroidism, unspecified; E78.5 Hyperlipidemia, unspecified; F31.9 Bipolar disorder, unspecified; F41.9 Anxiety disorder, unspecified; I10 Essential (primary) hypertension; K21.9 Gastro-esophageal reflux disease without esophagitis; Z98.890 Other specified postprocedural states; F29 Unspecified psychosis not due to a substance or known physiological condition
CPT/HCPCS: 36415; 80053-TC; 80061-TC; 84443-TC